=== PATIENT | male | born 1965 | race African-American/Black ===

== ENCOUNTER 2017-04-20 09:22 | Emergency (ER) | payer MEDICAID ==
[~2017-04-20] VITALS: Ht 182.9 cm; Wt 85.0 kg
[2017-04-20 09:35] VITALS: BP 127/67
== END 2017-04-20 11:09 | disposition home or self-care (01) ==
LOC: ED 10:17
DX: M77.9 Enthesopathy, unspecified (principal); E11.9 Type 2 diabetes mellitus without complications
CPT/HCPCS: 99284

== ENCOUNTER 2017-11-25 02:12 | Emergency (ER) | payer BC, MEDICAID ==
[~2017-11-25] VITALS: Ht 182.9 cm; Wt 84.5 kg
[2017-11-25 02:15] VITALS: BP 195/91
[2017-11-25] MEDS ORDERED: METHOCARBAMOL 750 MG TABLET ONE (02:48)
[2017-11-25] MEDS ORDERED: KETOROLAC 30 MG/1 ML ONE (02:48)
[2017-11-25] MEDS ORDERED: METHOCARBAMOL 750 MG TABLET PO ONE (03:00)
[2017-11-25] MEDS ORDERED: KETOROLAC 30 MG/1 ML IM ONE (03:00)
[2017-11-26] MEDS ORDERED: INSULIN PUMP (09:44)
== END 2017-11-25 03:18 | disposition home or self-care (01) ==
LOC: ED 03:15
DX: S39.012A Strain of muscle, fascia and tendon of lower back, initial encounter (principal); M79.652 Pain in left thigh; I10 Essential (primary) hypertension; E11.9 Type 2 diabetes mellitus without complications; X58.XXXA Exposure to other specified factors, initial encounter; Y93.01 Activity, walking, marching and hiking; Y92.89 Other specified places as the place of occurrence of the external cause; Y99.8 Other external cause status
CPT/HCPCS: 96372; 99283; J1885

== ENCOUNTER 2017-11-26 07:53 | Emergency (ER) | payer BC ==
[~2017-11-26] VITALS: Ht 182.9 cm; Wt 83.0 kg
[2017-11-26 07:59] VITALS: BP 153/82
[2017-11-26] MEDS ORDERED: INSULIN PUMP (09:44)
[2017-11-26] MEDS ORDERED: OXYcodone/APAP 5/325MG TABLET ONE (10:44)
[2017-11-26] MEDS ORDERED: OXYcodone/APAP 5/325MG TABLET PO ONE (11:00)
== END 2017-11-26 11:12 | disposition home or self-care (01) ==
LOC: ED 10:56
DX: M51.16 Intervertebral disc disorders with radiculopathy, lumbar region (principal); M54.5 Low back pain; E11.9 Type 2 diabetes mellitus without complications; I10 Essential (primary) hypertension
CPT/HCPCS: 72110; 99284

== ENCOUNTER 2017-11-27 21:35 | Emergency (ER) | payer BC ==
[~2017-11-27] VITALS: Ht 182.9 cm; Wt 83.5 kg
[~2017-11-27 21:35] MED LIST: INSULIN PUMP
[2017-11-27 21:45] VITALS: BP 121/76
== END 2017-11-27 22:44 | disposition left against medical advice (07) ==
LOC: ED 22:34
DX: Z53.21 Procedure and treatment not carried out due to patient leaving prior to being seen by health care provider (principal)